=== PATIENT | female | born 1975 | race Caucasian/White ===

== ENCOUNTER 2020-04-19 08:08 | Outpatient (REF) | payer OTHER, SELFPAY ==
--- NOTE | ~2020-04-19 | MM_ITS ---
EXAMINATION: MM SCREENING DIGITAL BREAST TOMOSYNTHESIS, BILATERAL CLINICAL INFORMATION: Screening. Asymptomatic. The lifetime risk of breast cancer based on the Tyrer-Cuzick Model is 7%. COMPARISON: Mammography: 04/14/2019, 02/18/2018, 02/10/2017 TECHNIQUE: Digital breast tomosynthesis is performed in both the craniocaudal and mediolateral oblique views along with computer-aided detection (CAD). Synthesized 2D images are generated from the tomosynthesis. FINDINGS: There are scattered areas of fibroglandular density (ACR BI-RADS breast composition Category b). The right breast is unremarkable. There is no interval mass or developing density. Neither breast shows architectural abnormality or abnormal calcifications. The axilla and skin contours are unremarkable. The left breast is a equal density smooth mass mid to posterior 9:00 position measuring 2.3 x 1.7 cm with partly obscured margins. This is more conspicuous when compared with prior exam. This may represent a cyst. Patient will be recalled for additional targeted ultrasound. MM/MM tomosynthesis screening BI IMPRESSION: 1. Left: Smooth mass with partly obscured margins 9:00 position, suspected cyst. 2. Right: No mammographic evidence of malignancy. ASSESSMENT: BI-RADS 0: Incomplete - Need Additional Imaging Evaluation RECOMMENDATION: 1. Targeted ultrasound left breast. 2. Radiology department staff will contact the patient for additional imaging. This patient's information was entered into a reminder system with a target due date for their next mammogram.
== END 2020-04-19 08:09 | disposition home or self-care (01) ==
LOC: HO.MAMMO 08:08
PROVIDERS: PCP Physician Assistant; Visit Provider Obstetrics & Gynecology
DX: Z12.31 Encounter for screening mammogram for malignant neoplasm of breast (principal)
CPT/HCPCS: 77063; 77067

== ENCOUNTER 2020-04-23 14:06 | Outpatient (REF) | payer OTHER, SELFPAY ==
--- NOTE | ~2020-04-23 | US_ITS ---
EXAMINATION: US DIAGNOSTIC ULTRASOUND BREAST, RIGHT CLINICAL INFORMATION: Recall from screening for equivocal density smooth mass 9:00 left breast approximately 2 cm. COMPARISON: Mammography 04/19/2020, 04/14/2019, 02/18/2018. TECHNIQUE: Ultrasound left breast is targeted to the inner aspect. Grayscale imaging and color Doppler are performed without and with harmonics. FINDINGS: There is a cyst 9:00 position 6 cm from nipple corresponding to the finding on mammography and measuring 2.2 x 1.4 x 1.1 cm. There are some scattered small fine incomplete peripheral avascular septations. No solid component. There is increased through-transmission of sound. No peripheral or internal color flow. No satellite cystic or solid mass or architectural abnormality. Results are discussed with the patient at time of visit. US/US breast LT limited IMPRESSION: Cyst medial left breast corresponding to finding on recent mammography measuring 2.2 cm. ASSESSMENT: BI-RADS 2: Benign RECOMMENDATION: Routine annual mammography screening. This patient's information was entered into a reminder system with a target due date for their next mammogram.
== END 2020-04-23 14:07 | disposition home or self-care (01) ==
LOC: HO.MAMMO 14:06
PROVIDERS: Visit Provider Obstetrics & Gynecology
DX: N60.01 Solitary cyst of right breast (principal)
CPT/HCPCS: 76642